=== PATIENT | male | born 1995 | race Caucasian/White ===

== ENCOUNTER 2019-03-18 13:22 | Emergency (ER) | payer BC ==
--- NOTE | 2019-03-18 15:01 | UC ---
Skin Complaint HPI - HPI Summary HPI Summary: 23 y/o male presents to the urgent care c/o rash w/ itchiness in his abdomen, chest, B/L arms, neck and face for the past week. Pt reports it started w/ an itchy rash in the abdomen about 1 months ago. Pt has been applying hydrocortisone topical cream and it was helping for a while, but now it is bigger and with some yellowish crusting over. Then about a week ago rash spread in the chest, arms, neck and face. Topical cream is not longer helping. Pt denies eating something different, using new detergents or body lotions, taking any new medication. He has Hx of Asthma, but never eczema. Pt denies pain , fever, neck pain, URI, SOB, throat tightening, SoB, chest pain, abdominal pain , N/V/D. - History of Current Complaint Time Seen by Provider: 03/18/19 15:00 Stated Complaint: SKIN IRRITATION Hx Obtained From: Patient Onset/Duration: Gradual Onset, Lasting Weeks - 4 weeks, Still Present, Worse Since - 1 week Skin Exposure Onset/Duration: Weeks Ago - 4 weeks Timing: Constant Onset Severity: Mild Current Severity: Moderate Pain Intensity: 0 Pain Scale Used: 0-10 Numeric Location: Generalized - abdomen, chest, B/L arms, neck and face Character: Pruritus, Hives, Redness Aggravating Factor(s): Touch Alleviating Factor(s): OTC Creams/Salves - hydrocotisone topical cream Associated Signs & Symptoms: Positive: Rash - abdomen, chest, b/l arms, neck and face. Negative: Fever, Chills, Drainage, Tenderness Related History: Possible Reaction to: Environmental Exposure - Allergy/Home Medications Allergies/Adverse Reactions: Allergies Allergy/AdvReac Type Severity Reaction Status Date / Time No Known Allergies Allergy Verified 03/18/19 15:11 PMH/Surg Hx/FS Hx/Imm Hx Previously Healthy: Yes Respiratory History: Asthma - Surgical History Surgical History: Yes Surgery Procedure, Year, and Place: Tonsils - Family History Known Family History: Positive: Diabetes, Respiratory Disease - + asthma - Social History Occupation: Employed Full-time Lives: With Family Alcohol Use: Occasionally Substance Use Type: None Smoking Status (MU): Never Smoked Tobacco Review of Systems All Other Systems Reviewed And Are Negative: Yes Constitutional: Positive: Negative Skin: Positive: Rash - abdomen, chest . B/L arms, neck and face w/ itchy rash Eyes: Positive: Negative ENT: Positive: Negative Respiratory: Positive: Negative Cardiovascular: Positive: Negative Gastrointestinal: Positive: Negative Genitourinary: Positive: Negative Motor: Positive: Negative Neurovascular: Positive: Negative Musculoskeletal: Positive: Negative Neurological: Positive: Negative Psychological: Positive: Negative Is Patient Immunocompromised?: No Physical Exam - Summary Physical Exam Summary: Vital Signs Reviewed: Yes General: well appearing, well nourished obese male in no acute apparent pain distress, sitting comfortably on examining table Eye Exam: Normal Eyes: Positive: Conjunctiva Clear - PERRLA< EOMI, fundi grossly normal ENT: Positive: Normal ENT inspection, Hearing grossly normal, Pharynx normal, TMs normal Neck: Positive: Supple, Nontender, No Lymphadenopathy Respiratory: Positive: Chest non-tender, Lungs clear, Normal breath sounds, No respiratory distress Cardiovascular: Positive: RRR, No Murmur, Pulses Normal, Brisk Capillary Refill Abdomen Description: Positive: Nontender, No Organomegaly, Soft. Negative: CVA Tenderness (R), CVA Tenderness (L) Bowel Sounds: Positive: Present Musculoskeletal: Positive: Strength Intact, ROM Intact, No Edema Neurological: Positive: Alert, Muscle Tone Normal Psychological Exam: Normal Skin: Positive: Positive erythematous patch in the lower abdomen w/ indistinct borders, warm and tender to palpation, yellowish crusting over observed, about 5.0cm x6.0cm in size. pulses WNL, capillary refill brisk, sensation WNL. Also Positive erythematous eruption s/ scaling and dryness w/ signs of excoriation chest, B/L arms, neck, and face w/ scattered discrete maculopapular erythematous eruption w/ signs of excoriation and some hives. non tender to palpation, no swelling, no drainage observed. Triage Information Reviewed: Yes Course/Dx - Course Course Of Treatment: 23 y/o male presents to the urgent care c/o rash w/ itchiness in his abdomen, chest, B/L arms, neck and face for the past week. Pt reports it started w/ an itchy rash in the abdomen about 1 months ago. Pt has been applying hydrocortisone topical cream and it was helping for a while, but now it is bigger and with some yellowish crusting over. Then about a week ago rash spread in the chest, arms, neck and face. Topical cream is not longer helping. Pt denies eating something different, using new detergents or body lotions, taking any new medication. He has Hx of Asthma, but never eczema. Pt denies pain , fever, neck pain, URI, SOB, throat tightening, SOB, chest pain, abdominal pain , N/V/D. Hx obtained. Pt w/ possible contact dermatitis w/ bacterial co- infection over the abdominal rash. Pt RX keflex PO, Prednisone PO taper dose, triamcinolone topical cream except for face. Advised to apply Aquaphor in the face and take OTC Benadryl PO to alleviate pruritus. Pt advised to f/u w/ PCP or Political Science Professor DR Norman if not improvement of symptoms. Pt's BP is elevated today advised to decrease salt in diet, monitor BP and f/u with PCP for further management. D/C instructions explained. Pt understood and agreed w / plan of care and left the clinic ambulating and hemodynamically stable. - Differential Diagnoses - Skin Complaint Differential Diagnoses: Abscess, Cellulitis, Contact Dermatitis, Impetigo, Local Allergic Reaction, MRSA, Poison [place], Poison [place], Tinea, Urticaria - Diagnoses Provider Diagnosis: Contact dermatitis, Cellulitis of abdominal wall, Elevated BP without diagnosis of hypertension Discharge - Sign-Out/Discharge Documenting (check all that apply): Patient Departure - d/c home All imaging exams completed and their final reports reviewed: No Studies - Discharge Plan Condition: Stable Disposition: HOME Prescriptions: Cephalexin CAP* [Keflex CAP*] 500 mg PO TID #21 cap predniSONE TAB* [Deltasone 20 MG TAB*] 20 mg PO DAILY #11 tab Triamcinolone 0.1% CREAM(NF) [Kenalog Cream 0.1%(NF)] 1 applic TOPICAL BID #1 tube Patient Education Materials: Contact Dermatitis (ED), Cellulitis (ED) Referrals: [facility] [place] [facility] REFERRAL [Outside] - 1 Week Barbara Riggins [Medical Doctor] - 1 Week Additional Instructions: 1-Please take Prednisone PO taper doseas directed . Also take Keflex PO as directed to alleviate co-infection on rash in the abdomen. 2- Apply Triamcinolone topical cream as directed. Avoid applying to your face and avoid exposure to the sun. Apply Aquafor topical cream an the rash in your face. 3-If symptoms do not improve or worsen please f/u with your PCP or Political Science Professor Dr Riggins in 1 week for further evaluation and treatment. 4- If symptoms worsen and you develop SOB or difficulty breathing please go immediately to the ER for further management. 5-Your BP is elevated today. please decrease salt in your diet, monitor BP and if it continues to be elevated please f/u with your PCP for further management. - Billing Disposition and Condition Condition: STABLE Disposition: Home
[2019-03-18 15:11] VITALS: BP 140/69
== END 2019-03-18 15:54 | disposition home or self-care (01) ==
LOC: UCCORT 13:22
DX: L25.9 Unspecified contact dermatitis, unspecified cause (principal); L03.311 Cellulitis of abdominal wall; R03.0 Elevated blood-pressure reading, without diagnosis of hypertension; J45.909 Unspecified asthma, uncomplicated
CPT/HCPCS: 99212; G0463